=== PATIENT | male | born 1995 | race Caucasian/White ===

== ENCOUNTER 2019-01-15 02:52 | Emergency (ER) | payer SELFPAY ==
[2019-01-15] MEDS ORDERED: Acetaminophen/oxyCODONE 325-5 MG Tab PO ONE (03:11)
[2019-01-15] MEDS ORDERED: Ketorolac 0.5% Ophth Soln 5 ML Bottle EYEBOTH ONE (03:12)
[2019-01-15] MEDS ORDERED: diphenhydrAMINE 50 MG Cap PO ONE (03:12)
[2019-01-15] MEDS ORDERED: Ciprofloxacin 0.3% Ophth Soln 5 ML Bottle EYEBOTH ONE (03:13)
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
[2019-01-15 03:32] VITALS: BP 144/93
== END 2019-01-15 03:30 | disposition home or self-care (01) ==
LOC: JD.ED 02:52
DX: S05.02XA Injury of conjunctiva and corneal abrasion without foreign body, left eye, initial encounter (principal); S05.01XA Injury of conjunctiva and corneal abrasion without foreign body, right eye, initial encounter; F17.210 Nicotine dependence, cigarettes, uncomplicated; W89.0XXA Exposure to welding light (arc), initial encounter
CPT/HCPCS: 99283; A9270

== ENCOUNTER 2021-03-16 09:36 | Emergency (ER) | payer SELFPAY ==
--- NOTE | 2021-03-16 09:54 | EDM.PDOC ---
ED HPI GENERAL MEDICAL PROBLEM - General Chief Complaint: Abdominal Pain Stated Complaint: LOWER RIGHT ABDOMINAL PAIN Time Seen by Provider: 03/16/21 09:47 Source of Information: Reports: Patient History Limitations: Reports: No Limitations - History of Present Illness INITIAL COMMENTS - FREE TEXT/NARRATIVE: 25-year-old male presents to the ED with a history of diarrhea for over a week. He states it is more than 10 times a day sometimes small quantities sometimes fairly large quantity in the morning. It is mucousy without any blood. Associated diffuse lower abdominal crampy pain particular left lower quadrant and suprapubically. He is able to eat okay. He has not appreciated any fever or chills. Of note he has been on cephalexin 500 mg 3 times daily for a dental root canal infection for the last 2 weeks. Therefore concerns arise for possible C. difficile enteritis. He has had no previous abdominal surgery. Not sure if he is lost any weight or not. Onset: Gradual Onset Date: 03/13/21 (Worse diarrhea over the last 3 to 4 days.) Duration: Day(s):, Getting Worse Location: Reports: Abdomen (Significant diarrhea 10-14 times per day without blood. Occasional abdominal cramping pain left lower quadrant suprapubically.) Quality: Reports: Other (Intermittent colicky crampy pain left lower quadrant) Severity: Moderate Improves with: Reports: None Worsens with: Reports: Eating (Perhaps made worse by eating.) Context: Reports: Other (Has been on cephalexin 500 mg 3 times daily for the last 2 weeks for dental). Denies: Activity, Exercise, Lifting, Sick Contact, Trauma Associated Symptoms: Reports: Loss of Appetite, Malaise, Weakness. Denies: Confusion ( root canal infection. 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.) Lower Abdomen Pain Score (Numeric/FACES): 7 - Related Data Allergies Allergy/AdvReac Type Severity Reaction Status Date / Time amoxicillin Allergy Severe Rash Verified 03/16/21 09:46 Home Meds: Home Meds cephALEXin [Keflex] 500 mg PO Q8H 03/16/21 [History] metroNIDAZOLE [Flagyl] 500 mg PO Q8H #30 tab 03/16/21 [Rx] oxyCODONE HCl/Acetaminophen [Percocet 5-325 mg Tablet] 1 - 2 each PO Q4H PRN #16 tablet 03/16/21 [Rx] Past Medical History - Past Health History Medical/Surgical History: Denies Medical/Surgical History HEENT History: Reports: Other (See Below) Social & Family History - Family History Family Medical History: No Pertinent Family History - Tobacco Use Tobacco Use Status *Q: Current Every Day Tobacco User Tobacco Use Within Last Twelve Months: Cigarettes Years of Tobacco use: 8 Packs/Tins Daily: 1 - Caffeine Use Caffeine Use: Reports: Energy Drinks - Living Situation & Occupation Living situation: Reports: Single 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 Denies: Fever, Chills HEENT: Reports: No Symptoms Respiratory: Reports: Cough Cardiovascular: Reports: No Symptoms, Chest Pain, Lightheadedness. Denies: Blood Pressure Problem, Claudication, Dyspnea on Exertion (Occasionally the last few days.), Edema, Orthopnea, Palpitations Endocrine: Reports: No Symptoms, Fatigue GI/Abdominal: Reports: Abdominal Pain, Diarrhea (Fuhs intermittent lower abdominal crampy pain left lower quadrant suprapubically.). Denies: Hematemesis, Hematochezia ( 10-14 loose bowel movements per day the last 3 to 4 days without blood.), Nausea, Vomiting : Reports: No Symptoms Musculoskeletal: Reports: No Symptoms Skin: Reports: No Symptoms Neurological: Reports: No Symptoms Psychiatric: Reports: No Symptoms Hematologic/Lymphatic: Reports: No Symptoms Immunologic: Reports: No Symptoms ED EXAM, GI/ABD - Physical Exam Exam: See Below Exam Limited By: No Limitations General Appearance: Alert, WD/WN, No Apparent Distress, Other (Temperature is 36.8 degrees. Heart rate 81 and sinus respiratory 16 with O2 sats 100% room air. Blood pressure initially is mildly elevated at 145 106. ) Throat/Mouth: Normal Inspection, Normal Lips, Normal Oropharynx, Other Head: Atraumatic, Normocephalic (Tongue is moist.), Sinus Tenderness Neck: Normal Inspection, Supple, Non-Tender, Full Range of Motion. No: Lymphadenopathy (L), Lymphadenopathy (R) Respiratory/Chest: No Respiratory Distress, Lungs Clear, Normal Breath Sounds, No Accessory Muscle Use Cardiovascular: Normal Peripheral Pulses, Regular Rate, Rhythm, No Edema, No Gallop, No Murmur, No Rub GI/Abdominal Exam: Soft, Non-Tender ( Scaphoid abdomen.), No Organomegaly, No Distention, No Abnormal Bruit, No Mass, Pelvis Stable, Tender (Mildly tender suprapubically left lower quadrant of the abdomen), Abnormal Bowel Sounds, Other (Active bowel sounds in all 4 quadrants.). No: Guarding, Rigid, Rebound (Male) Exam: No Hernia, Other Back Exam: Normal Inspection, Full Range of Motion. No: CVA Tenderness (L), CVA Tenderness (R) Extremities: Normal Inspection, Normal Range of Motion, Non-Tender, No Pedal Edema Neurological: Alert, Oriented, CN II-XII Intact, Normal Cognition Psychiatric: Normal Affect, Normal Mood Skin Exam: Warm, Dry, Intact, Normal Color, No Rash Course - Vital Signs Last Recorded V/S: Last Vital Signs Temp 36.8 C 03/16/21 09:43 Pulse 98 03/16/21 13:35 Resp 17 03/16/21 13:35 BP 149/90 H 03/16/21 13:35 Pulse Ox 100 03/16/21 13:35 - Orders/Labs/Meds Orders: Active Orders 24 hr Category Date Time Status C DIFFICILE TOXIN IMMUNOASSAY [MREF] Stat Lab 03/16/21 12:45 Received Labs: Laboratory Tests 03/16/21 03/16/21 03/16/21 Range/Units 10:15 10:15 10:15 WBC 11.94 H (4.23-9.07) K/mm3 RBC 5.38 (4.63-6.08) M/mm3 Hgb 15.8 (13.7-17.5) gm/dl Hct 47.1 (40.1-51.0) % MCV 87.5 (79.0-92.2) fl MCH 29.4 (25.7-32.2) pg MCHC 33.5 (32.2-35.5) g/dl RDW Std Deviation 44.0 H (35.1-43.9) fL Plt Count 244 (163-337) K/mm3 MPV 9.5 (9.4-12.3) fl Neut % (Auto) 73.1 H (34.0-67.9) % Lymph % (Auto) 16.2 L (21.8-53.1) % Hale % (Auto) 8.5 (5.3-12.2) % Eos % (Auto) 1.7 (0.8-7.0) Baso % (Auto) 0.3 (0.1-1.2) % Neut # (Auto) 8.73 H (1.78-5.38) K/mm3 Lymph # (Auto) 1.94 (1.32-3.57) K/mm3 Hale # (Auto) 1.02 H (0.30-0.82) K/mm3 Eos # (Auto) 0.20 (0.04-0.54) K/mm3 Baso # (Auto) 0.03 (0.01-0.08) K/mm3 Manual Slide Review Normal smear ESR 3 (0-15) mm/hr Sodium 139 (136-145) mEq/L Potassium 4.3 (3.5-5.1) mEq/L Chloride 101 (98-107) mEq/L Carbon Dioxide 26 (21-32) mEq/L Anion Gap 16.3 H (5-15) BUN 12 (7-18) mg/dL Creatinine 1.1 (0.7-1.3) mg/dL Est Cr Clr Drug Dosing 85.33 mL/min Estimated GFR (MDRD) > 60 (>60) mL/min BUN/Creatinine Ratio 10.9 L (14-18) Glucose 106 (74-106) mg/dL Lactic Acid (0.4-2.0) mmol/L Calcium 9.1 (8.5-10.1) mg/dL Magnesium 2.0 (1.8-2.4) mg/dl Total Bilirubin 0.4 (0.2-1.0) mg/dL AST 19 (15-37) U/L ALT 37 (16-63) U/L Alkaline Phosphatase 55 (46-116) U/L C-Reactive Protein <0.2 (<1.0) mg/dL Total Protein 8.9 H (6.4-8.2) g/dl Albumin 4.6 (3.4-5.0) g/dl Globulin 4.3 gm/dL Albumin/Globulin Ratio 1.1 (1-2) Lipase 68 L (73-393) U/L C.difficile 027-NAP1-B1 C. difficile Tox (PCR) 03/16/21 03/16/21 Range/Units 10:15 12:45 WBC (4.23-9.07) K/mm3 RBC (4.63-6.08) M/mm3 Hgb (13.7-17.5) gm/dl Hct (40.1-51.0) % MCV (79.0-92.2) fl MCH (25.7-32.2) pg MCHC (32.2-35.5) g/dl RDW Std Deviation (35.1-43.9) fL Plt Count (163-337) K/mm3 MPV (9.4-12.3) fl Neut % (Auto) (34.0-67.9) % Lymph % (Auto) (21.8-53.1) % Hale % (Auto) (5.3-12.2) % Eos % (Auto) (0.8-7.0) Baso % (Auto) (0.1-1.2) % Neut # (Auto) (1.78-5.38) K/mm3 Lymph # (Auto) (1.32-3.57) K/mm3 Hale # (Auto) (0.30-0.82) K/mm3 Eos # (Auto) (0.04-0.54) K/mm3 Baso # (Auto) (0.01-0.08) K/mm3 Manual Slide Review ESR (0-15) mm/hr Sodium (136-145) mEq/L Potassium (3.5-5.1) mEq/L Chloride (98-107) mEq/L Carbon Dioxide (21-32) mEq/L Anion Gap (5-15) BUN (7-18) mg/dL Creatinine (0.7-1.3) mg/dL Est Cr Clr Drug Dosing mL/min Estimated GFR (MDRD) (>60) mL/min BUN/Creatinine Ratio (14-18) Glucose (74-106) mg/dL Lactic Acid 0.7 (0.4-2.0) mmol/L Calcium (8.5-10.1) mg/dL Magnesium (1.8-2.4) mg/dl Total Bilirubin (0.2-1.0) mg/dL AST (15-37) U/L ALT (16-63) U/L Alkaline Phosphatase (46-116) U/L C-Reactive Protein (<1.0) mg/dL Total Protein (6.4-8.2) g/dl Albumin (3.4-5.0) g/dl Globulin gm/dL Albumin/Globulin Ratio (1-2) Lipase (73-393) U/L C.difficile 027-NAP1-B1 Presumptive positive H C. difficile Tox (PCR) Positive H Meds: Medications Discontinued Medications Generic Name Dose Route Start Last Admin Trade Name Freq PRN Reason Stop Dose Admin Diatrizoate Meglum/Diatrizoate Sod 90 ml 03/16/21 10:03 03/16/21 11:41 Diatrizoate Meglumine/Diatrizoate Sodium 37% 120 Ml Bottle PO 03/16/21 10:04 45 ml ONETIME ONE Administration Hydromorphone HCl 0.5 mg 03/16/21 13:08 03/16/21 13:26 Hydromorphone 0.5 Mg/0.5 Ml Syringe IVPUSH 03/16/21 13:09 0.5 mg ONETIME ONE Administration Dextrose/Lactated Ringer's 1,000 mls @ 500 mls/hr 03/16/21 10:00 03/16/21 10:19 Dextrose 5%-Lactated Ringers IV 500 mls/hr ASDIRECTED PASCUAL Administration Iopamidol 100 ml 03/16/21 10:03 03/16/21 11:41 Iopamidol 612 Mg/Ml 100 Ml Bottle IVPUSH 03/16/21 10:04 100 ml ONETIME ONE Administration Ondansetron HCl 4 mg 03/16/21 13:08 03/16/21 13:26 Ondansetron 4 Mg Tab.Dis PO 03/16/21 13:09 4 mg ONETIME ONE Administration Sodium Chloride 10 ml 03/16/21 10:03 03/16/21 11:41 Sodium Chloride 0.9% 10 Ml Syringe FLUSH 03/16/21 10:04 10 ml ONETIME ONE Administration - Radiology Interpretation Free Text/Narrative:: 25-year-old male presents to the ED with worsening diarrhea over the last 4 days. Of note the patient has been on cephalexin 500 mg 3 times daily for the last 2 weeks for a dental root canal infection. Has a temporary cath in place. The Keflex was provided by the dentist. He is having some left lower quadrant abdominal cramping pain suprapubic abdominal cramping pain associated with diarrhea which is yellow and mucousy. No blood noted. He is having between 10 and 14 bowel moods a day usually aggravated by eating. He is complaining of some right lower quadrant abdominal pain but he really indicates that across the lower abdomen. It is made worse by eating. Is appetite remains normal. Not sure how much weight he has lost but he believes he is lost a couple of pounds. Plan routine labs to be performed. He will have CT of the abdomen performed with oral and IV contrast. When his stool becomes available he will be checked for C. difficile enteritis. - Re-Assessments/Exams Free Text/Narrative Re-Assessment/Exam: 03/16/21 10:49 White count is mildly elevated at 11.94. Differential shows 73% neutrophils. Hemoglobin is 15.8 with hematocrit of 47.1 Platelet count 244,000 03/16/21 11:56 Sed rate is 3. Sodium 139 with a potassium of 4.3. Chloride 101 with a bicarb of 26. Anion gap is 16.3. BUN is 12 with a creatinine of 1.1 GFR is greater than 60. BUN/creatinine ratio is 10.9 glucose 106 lactic acid is 0.7. Calcium is 9.1. Magnesium is 2.0. Liver function is normal. C-reactive protein is less than 0.2. Total protein is 8.9. Albumin fraction is 4.6 lipase is normal at 68. CT of the abdomen and pelvis has been completed with IV and oral contrast. Visualized portions of the lung bases are clear. Visualized portions of the heart are normal. Liver is homogeneous without any intraductal dilatation. Gallbladder contains no calcified gallstones. Pancreas is normal. Spleen is normal. Both kidneys are within normal limits showing no hydronephrosis or dilated ureters. Bladder is full. The bowel does contain portions of stool particular in the transverse colon and into the rectal vault which would be against a history of significant diarrhea which the patient claims to have. He was claiming he was having up to 10-14 loose stools per day. Will await a bowel movement which will occur from the oral contrast and tested for C. difficile however it appears that this is likely going to be normal. 03/16/21 12:31 the scan of the abdomen has been over read by the radiologist. He really does not see anything that I did not see. He comments that there is no retroperitoneal adenopathy or mesenteric abnormalities noted. Knee no free fluid or inflammatory changes appreciated appendix is seen and appears to be normal in size no bowel dilatation is seen. No areas of bowel wall thickening are seen. Contrast is noted within the rectosigmoid region. 03/16/21 12:43 Patient does report that he did have a bowel movement into a hat. Therefore sample will be sent over for C. difficile testing. 03/16/21 14:44 Stool testing for C. difficile did come back positive presumably for the 027-NAP 1-B1 variant which is more toxic. I was able to discuss this over the phone with the patient as he had left the department due to being very prolonged period of time to get an answer back. He will of course stop the cephalexin that he is currently taking for dental infection and start metronidazole 500 mg 3 times daily for the next 10 days. Pres[place] [facility] [place]. Departure - Departure Time of Disposition: 13:08 Disposition: Home, Self-Care 01 Condition: Fair Clinical Impression: Pain, dental, Diarrhea due to drug, Intestinal infection due to Clostridium difficile - Discharge Information *PRESCRIPTION DRUG MONITORING PROGRAM REVIEWED*: Not Applicable *COPY OF PRESCRIPTION DRUG MONITORING REPORT IN PATIENT LISA: Not Applicable Prescriptions: metroNIDAZOLE [Flagyl] 500 mg PO Q8H #30 tab oxyCODONE HCl/Acetaminophen [Percocet 5-325 mg Tablet] 1 - 2 each PO Q4H PRN #16 tablet PRN Reason: pain relief. Instructions: Acute Pain, Adult, Diarrhea, Adult, [id number] Referrals: PCP,None [Primary Care Provider] - Forms: ED Department Discharge Additional Instructions: Evaluation in the emergency room today in regards to increasing lower abdominal cramping pain associate with the development of diarrhea with reported greater than 10 bowel movements per day for the last 3 to 4 days. This is worrisome since you have been on antibiotics cephalexin or Keflex 500 mg 3 times daily for the last 14 days for dental infection. Antibiotic can cause a antibiotic induced colitis and an organism called C. difficile which lives in the bowel can take over secreting a toxin causing the diarrhea. CT scan of the head was completed in the ED and it is essentially within normal limits. Lab test also proved to be normal. Stool is being tested at this time for C. difficile and I will call you when the answer becomes available as it would require a different antibiotic to treat it. In the meantime strongly advise you to discontinue your current Keflex antibiotic to stop the diarrhea. May use Percocet tablets 5 325 mg 1 or 2 every 4-6 hours when not working or operating machinery or driving for dental pain relief and/or abdominal pain relief. Follow-up with dentist as soon as able. Sepsis Event Note (ED) - Evaluation Sepsis Screening Result: No Definite Risk - Focused Exam Vital Signs: Vital Signs Temp Pulse Resp BP Pulse Ox 03/16/21 13:35 98 17 149/90 H 100 03/16/21 09:43 36.8 C 81 16 145/106 H 100 - My Orders Last 24 Hours: My Active Orders 03/16/21 12:45 C DIFFICILE TOXIN IMMUNOASSAY [MREF] Stat - Assessment/Plan Last 24 Hours: My Active Orders 03/16/21 12:45 C DIFFICILE TOXIN IMMUNOASSAY [MREF] Stat
[2021-03-16] MEDS ORDERED: Dextrose 5%-Lactated Ringers 1,000 ML IV SCH (10:00)
[2021-03-16] MEDS ORDERED: Diatrizoate Meglumine/Diatrizoate Sodium 37% 120 ML Bottle PO ONE (10:03)
[2021-03-16] MEDS ORDERED: Iopamidol 612 MG/ML 100 ML Bottle IVPUSH ONE (10:03)
[2021-03-16] MEDS ORDERED: Sodium Chloride 0.9% 10 ML Syringe FLUSH ONE (10:03)
--- NOTE | 2021-03-16 12:14 | CT ---
CT abdomen and pelvis Technique: Multiple axial sections were obtained from above the dome of the diaphragm inferiorly through the pubic symphysis. Intravenous and oral contrast was utilized. Reconstructed coronal and sagittal images were obtained. Comparison: No prior abdominal imaging is available. Findings: Visualized lung bases show nothing acute. Liver shows no focal parenchymal abnormality. Spleen size is normal. Gallbladder contains no calcified gallstones. Adrenal glands show no nodule. Pancreas shows no abnormality. Kidneys show symmetric contrast enhancement. No ureteral calcifications are seen. Abdominal aorta shows no aneurysm. No retroperitoneal adenopathy or mesenteric abnormalities are seen. No pelvic mass or adenopathy is seen. No free fluid or inflammatory change is appreciated. Appendix is seen and appears to be normal in size. No bowel dilatation is seen. No areas of bowel wall thickening are seen. Contrast is noted within the rectosigmoid region. Bone window settings were reviewed which appear within normal limits for the patient's age. Impression: 1. Contrast seen within the patient's rectosigmoid region. Please correlate at what time contrast was given if this represents rapid transit. 2. No additional abnormality is appreciated on CT study of the abdomen and pelvis. Diagnostic code #2
[2021-03-16] MEDS ORDERED: Ondansetron 4 MG Tab.DIS PO ONE (13:08)
[2021-03-16] MEDS ORDERED: HYDROmorphone 0.5 MG/0.5 ML Syringe IVPUSH ONE (13:08)
[2021-03-16 13:36] VITALS: BP 149/90; PULSE 98
== END 2021-03-16 13:35 | disposition home or self-care (01) ==
LOC: JD.ED 09:36
DX: A04.72 Enterocolitis due to Clostridium difficile, not specified as recurrent (principal); K52.1 Toxic gastroenteritis and colitis; K08.89 Other specified disorders of teeth and supporting structures; T36.1X5A Adverse effect of cephalosporins and other beta-lactam antibiotics, initial encounter; Z72.0 Tobacco use; Z88.0 Allergy status to penicillin
CPT/HCPCS: 36415; 74177; 80053; 83605; 83690; 83735; 85025; 85652; 86140; 87324; 87493; 96374; 99284; A9270; J1170; J7121; Q9963; Q9967